=== PATIENT | female | born 1970 | race Caucasian/White ===

== ENCOUNTER 2020-10-27 16:52 | Emergency (ER) | payer SELFPAY ==
[2020-10-27 17:33] VITALS: BMI 22.9
[2020-10-27 17:57] LABS: BASO % 3.8 % (0-2.0); EOS % 3.5 % (0-4.5); HEMATOCRIT 39.3 % (32.4-45.2); HEMOGLOBIN 13.1 GM/dl (10.7-15.3); LYMPH % 27.6 % (8-40); MCH 34.4 pg (25.7-33.7); MCHC 33.2 g/dl (32.0-36.0); MEAN CELL VOLUME 103.5 fl (80-96); MEAN PLT VOLUME 8.9 fl (7.5-11.1); MONO % 3.3 % (3.8-10.2); NEUT % 61.8 % (42.8-82.8); PLATELET COUNT 317 K/MM3 (134-434); RDW 15.5 % (11.6-15.6); WHITE BLOOD COUNT 6.5 K/mm3 (4.0-10.8)
[2020-10-27 18:06] LABS: ALBUMIN 3.8 g/dl (3.4-5.0); BILIRUBIN,TOTAL 0.4 mg/dl (0.2-1); CALCIUM 9.2 mg/dl (8.5-10); CREATININE 0.7 mg/dl (0.55-1.3); POTASSIUM 3.8 mmol/L (3.5-5.1); TOT PROT 6.6 g/dl (6.4-8.2)
[2020-10-27 20:09] VITALS: BP 127/81; PULSE 86; TEMP 98.7
== END 2020-10-27 20:15 | disposition home or self-care (01) ==
LOC: FER 16:52
DX: R56.9 Unspecified convulsions (principal)
CPT/HCPCS: 36415; 70450-TC; 80053; 82550; 82553; 83735; 84484; 84703; 85025; 93005; 99285-25